=== PATIENT | male | born 1980 | race Two or more races ===

== ENCOUNTER 2018-11-04 15:48 | Emergency (ER) | payer OTHER ==
[~2018-11-04] VITALS: Ht 177.8 cm; Wt 122.0 kg
[2018-11-04 16:20] VITALS: BP 129/91
[2018-11-04] MEDS ORDERED: MAG HYDROX/AL HYDROX/SIMETH 30 ML UDC PO ONE (16:30)
[2018-11-04] MEDS ORDERED: ONDANSETRON HCL/PF 4 MG/2 ML VIAL IM ONE (16:30)
[2018-11-04] MEDS ORDERED: LORAZEPAM 1 MG TABLET PO ONE (16:30)
[2018-11-04] MEDS ORDERED: ONDANSETRON HCL/PF 4 MG/2 ML VIAL ONE (16:37)
[2018-11-04] MEDS ORDERED: MAG HYDROX/AL HYDROX/SIMETH 30 ML UDC ONE (16:37)
[2018-11-04] MEDS ORDERED: LORAZEPAM 1 MG TABLET ONE (16:38)
--- NOTE | 2018-11-04 16:45 | NUR ---
Patient discharged to home in stable condition. Written and verbal after care instructions given. Patient verbalizes understanding of instruction.
== END 2018-11-04 16:46 | disposition home or self-care (01) ==
LOC: ER 15:52
DX: F10.239 Alcohol dependence with withdrawal, unspecified (principal); E78.5 Hyperlipidemia, unspecified; E11.9 Type 2 diabetes mellitus without complications; F41.9 Anxiety disorder, unspecified; F32.9 Major depressive disorder, single episode, unspecified; Y90.9 Presence of alcohol in blood, level not specified
CPT/HCPCS: 96372; 99283; J2405

== ENCOUNTER 2022-03-18 10:24 | Emergency (ER) | payer OTHER ==
[~2022-03-18] VITALS: Ht 177.8 cm; Wt 108.9 kg
--- NOTE | 2022-03-18 11:13 | NUR ---
BIBS, C/O SWOLLEN LEFT FACIAL AREA, ASSESSED NO BUG BITE NOTED AT THIS TIME, STATED HE HAD SWELLING OF BI-LATERAL FEET AND ANKLES A FEW DAYS AGO, IT IS NO LONGER APPARENT, HAD DM
[2022-03-18 11:28] LABS: BASOPHILS # (AUTO) 0.1 K/uL (0.0-0.2); BASOPHILS % (AUTO) 1.2 % (0.0-2.0); EOSINOPHILS % (AUTO) 1.3 % (0.0-6.0); HEMATOCRIT 36 % (39-51); HEMOGLOBIN 12.4 g/dL (13.5-17.5); LYMPHOCYTES # (AUTO) 1.6 K/uL (0.8-4.8); LYMPHOCYTES % (AUTO) 15.3 % (20.0-44.0); MEAN CORPUSCULAR HGB CONC 34 g/dl (31.0-36.0); MEAN CORPUSCULAR VOLUME 99 fL (80-96); MONOCYTES # (AUTO) 0.8 K/uL (0.1-1.30); MONOCYTES % (AUTO) 7.3 % (2.0-12.0); NEUTROPHILS % (AUTO) 74.9 % (43.0-81.0); PLATELET COUNT (AUTO) 310 K/uL (150-450); RED BLOOD CELL COUNT(AUTO) 3.67 MIL/uL (4.5-6.0); WHITE BLOOD COUNT (AUTO) 10.7 K/uL (4.3-11.0)
[2022-03-18 11:49] LABS: CALCIUM, SERUM 8.5 mg/dL (8.5-10.1); CREATININE 0.7 mg/dL (0.6-1.3); POTASSIUM 3.5 mmol/L (3.5-5.1)
[2022-03-18] MEDS ORDERED: CLINDAMYCIN 900 MG in IV D5W 100 ML IV ONE (12:30)
[2022-03-18] MEDS ORDERED: IOHEXOL-300 100 ML VIAL IV ONE (12:51)
[2022-03-18] MEDS ORDERED: CLIN300C12 PO (13:55)
--- NOTE | 2022-03-18 14:06 | NUR ---
IV removed. Catheter intact and site benign. Pressure and 4x4 applied to site. No bleeding noted.Patient discharged to home in stable condition. Written and verbal after care instructions given. Patient verbalizes understanding of instruction.
[2022-03-18 14:07] VITALS: BP 126/79
== END 2022-03-18 14:08 | disposition home or self-care (01) ==
LOC: ER 10:30
DX: L03.211 Cellulitis of face (principal); J32.9 Chronic sinusitis, unspecified; E78.5 Hyperlipidemia, unspecified; E11.9 Type 2 diabetes mellitus without complications
CPT/HCPCS: 99285; 96365; 70487; 85025; 80048; 36415; J3490; J7060; Q9967

== ENCOUNTER 2024-07-30 14:39 | Emergency (ER) | payer OTHER ==
[~2024-07-30] VITALS: Ht 177.8 cm; Wt 99.8 kg
[~2024-07-30 14:39] MED LIST: CLIN300C12 PO
[2024-07-30 16:01] VITALS: BP 135/87; TEMP 98.3; O2SAT 98
== END 2024-07-30 18:39 | disposition left against medical advice (07) ==
LOC: ER 15:02
DX: R10.9 Unspecified abdominal pain (principal); Z53.21 Procedure and treatment not carried out due to patient leaving prior to being seen by health care provider